=== PATIENT | female | born 1985 | race Asian ===

== ENCOUNTER 2018-07-24 19:14 | Emergency (ER) | payer OTHER ==
[~2018-07-24] VITALS: Ht 157.5 cm; Wt 50.0 kg
[2018-07-24 19:55] VITALS: BP 128/76
[2018-07-24] MEDS ORDERED: IBUPROFEN 800 MG TABLET PO ONE (20:00)
[2018-07-24] MEDS ORDERED: ACETAMINOPHEN 500 MG TABLET PO ONE (20:00)
== END 2018-07-24 20:52 | disposition home or self-care (01) ==
LOC: EMS 19:16
DX: T23.102A Burn of first degree of left hand, unspecified site, initial encounter (principal); X10.0XXA Contact with hot drinks, initial encounter; Y93.89 Activity, other specified; Y92.89 Other specified places as the place of occurrence of the external cause; Y99.0 Civilian activity done for income or pay
CPT/HCPCS: 99283